=== PATIENT | female | born 1975 | race Caucasian/White ===

== ENCOUNTER 2017-05-21 10:32 | Emergency (ER) | payer MEDICAID ==
[~2017-05-21] VITALS: Ht 165.1 cm; Wt 101.0 kg
[2017-05-21 10:34] VITALS: BP 125/81
[2017-05-21] MEDS ORDERED: KETOROLAC 30 MG/1 ML ONE (11:14)
[2017-05-21] MEDS ORDERED: METHOCARBAMOL 750 MG TABLET ONE (11:14)
[2017-05-21] MEDS ORDERED: AMIT50TA PO (11:23)
[2017-05-21] MEDS ORDERED: SERT50TA PO (11:23)
[2017-05-21] MEDS ORDERED: HYDR10TA4 PO (11:23)
[2017-05-21] MEDS ORDERED: KETOROLAC 30 MG/1 ML IM ONE (11:30)
[2017-05-21] MEDS ORDERED: METHOCARBAMOL 750 MG TABLET PO ONE (11:30)
== END 2017-05-21 11:55 | disposition home or self-care (01) ==
LOC: ED 11:27
DX: S39.012A Strain of muscle, fascia and tendon of lower back, initial encounter (principal); X50.0XXA Overexertion from strenuous movement or load, initial encounter; Y93.89 Activity, other specified; Y92.89 Other specified places as the place of occurrence of the external cause; Y99.8 Other external cause status
CPT/HCPCS: 96372; 99283; J1885

== ENCOUNTER 2017-08-21 15:13 | Emergency (ER) | payer MEDICAID ==
[~2017-08-21] VITALS: Ht 165.1 cm; Wt 107.5 kg
[~2017-08-21 15:13] MED LIST: AMIT50TA PO; HYDR10TA4 PO; SERT50TA PO
[2017-08-21] MEDS ORDERED: SODIUM CHLORIDE FLUSH 10ML SYR IVF ONE (16:00)
[2017-08-21] MEDS ORDERED: SODIUM CHLORIDE 0.9% 1,000ML IVBOLUS ONE (16:00)
[2017-08-21 16:13] LABS: HEMATOCRIT 44.3 % (34.6-47.8); HEMOGLOBIN 15.4 g/dL (11.7-16.4); WHITE BLOOD COUNT 11.3 x10^3/uL (3.4-10)
[2017-08-21 16:25] LABS: ASPARTATE AMINO TRANSFERASE 19 U/L (15-37); BLOOD UREA NITROGEN 22 mg/dL (7-18)
[2017-08-21 18:26] VITALS: BP 150/68
== END 2017-08-21 18:28 | disposition home or self-care (01) ==
LOC: ED 17:39
DX: R53.1 Weakness (principal)
CPT/HCPCS: 36415; 80053; 81003; 83690; 85025; 93005; 96360; 99285; J7030

== ENCOUNTER 2017-11-08 02:48 | Emergency (ER) | payer MEDICAID ==
[~2017-11-08] VITALS: Ht 165.1 cm; Wt 111.4 kg
[2017-11-08 02:49] VITALS: BP 148/99
[2017-11-08] MEDS ORDERED: IBUPROFEN 200 MG TABLET ONE (03:21)
[2017-11-08] MEDS ORDERED: IBUPROFEN 200 MG TABLET PO ONE (03:30)
== END 2017-11-08 03:34 | disposition home or self-care (01) ==
LOC: ED 03:14
DX: K08.89 Other specified disorders of teeth and supporting structures (principal); F17.200 Nicotine dependence, unspecified, uncomplicated; Z88.1 Allergy status to other antibiotic agents
CPT/HCPCS: 99283